=== PATIENT | male | born 1965 | race Caucasian/White ===

== ENCOUNTER 2023-12-10 13:37 | Emergency (ER) | payer SELFPAY ==
[~2023-12-10] VITALS: Ht 188 cm; Wt 61.7 kg
[2023-12-10] MEDS ORDERED: SODIUM CHLORIDE 0.9% 1000ML 1,000 ML ONE (14:08)
[2023-12-10] MEDS: FLUORESCEIN SOD(OPTH) 1 MG STRP OP ONE (14:16)
[2023-12-10] MEDS: TETRACAINE HCL 0.5% OPTH SOLN 4 ML BTL OP ONE (14:17)
[2023-12-10] MEDS: SODIUM CHLORIDE 0.9% IRRIG 3,000 ML BAG IR STA (14:17)
[2023-12-10 16:00] VITALS: O2SAT 100
[2023-12-10] MEDS ORDERED: VIGAMOX3 ML OD (17:30)
[2023-12-10] MEDS ORDERED: BACITRACIN-POL3.5 GM OD (17:30)
[2023-12-10] MEDS ORDERED: CYCLOPENTOLATE H2 ML OD (17:30)
== END 2023-12-10 17:37 | disposition home or self-care (01) ==
LOC: ER 13:43
DX: H57.11 Ocular pain, right eye (principal); S05.01XA Injury of conjunctiva and corneal abrasion without foreign body, right eye, initial encounter; T52.4X1A Toxic effect of ketones, accidental (unintentional), initial encounter; Y92.89 Other specified places as the place of occurrence of the external cause
CPT/HCPCS: 99283; J7030